=== PATIENT | male | born 1995 | race Caucasian/White ===

== ENCOUNTER 2016-08-27 11:09 | Emergency (ER) | payer BC ==
[~2016-08-27] VITALS: Ht 182.9 cm; Wt 75.0 kg
[2016-08-27 11:10] VITALS: BP 133/70; PULSE 78; RESP 14; TEMP 98.2; O2SAT 98
--- NOTE | 2016-08-27 11:39 | PD ---
HPI . left arm fracture Chief Complaint: Pain: Acute or Chronic Time Seen by Provider: 11:28 Travel History International Travel<30 days: No Contact w/Intl Traveler<30days: No Traveled to known affect area: No History of Present Illness HPI 20-year-old male [place] Student here with complaints of the left distal ulna fracture. Patient was doing martial arts and somehow got whacked in the left arm with fake sword. He denies any lacerations or wounds. He was advised to have an xray which was done yesterday and shows distal ulna fracture on left. He was told to see ortho today, but had difficulty getting an appointment. He has an appointment for Tuesday. He decided to come to the ED to get a splint or cast until he is seen. He has his left arm in a sling well supported. He denies any pain as long as it is not moved. He has no other complaints. PFSH Past Medical History Medical History: Denies Significant Hx Social History Tobacco Use: No Substance Use: No Allergies-Medications (Allergen,Severity, Reaction): Coded Allergies: Sulfa (Verified Allergy, Severe, 08/27/16) Review of Systems General / Constitutional: No: Fever Eyes: No: Visual changes HENT: No: Headaches Cardiovascular: No: Chest Pain or Discomfort Respiratory: No: Shortness of Breath Gastrointestinal: No: Abdominal Pain Genitourinary: No: Dysuria Musculoskeletal: Positive: Pain (left forarm) Skin: No Rash Neurologic: No: Weakness Psychiatric: No: Depression Endocrine: No: Polydipsia Hematologic/Lymphatic: No: Easy Bruising Physical Exam Narrative GENERAL: AAO x 3, no acute distress, Well-nourished, well-developed patient. SKIN: Warm and dry. No visible rashes or bruising. HEAD: Normocephalic and atraumatic. EYES: No scleral icterus. No injection or drainage. ENT: No nasal drainage noted. Mucous membranes pink. Airway patent. NECK: Supple, trachea midline. No JVD. CARDIOVASCULAR: Regular rate and rhythm without murmurs, gallops, or rubs. RESPIRATORY: Breath sounds equal bilaterally. No accessory muscle use. No rhonchi or rales. GASTROINTESTINAL: Abdomen soft, non-tender, nondistended. EXTREMITIES: No cyanosis. minimal edema to left distal forearm. tenderness to touch. pulses are intact. 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 all digits mobile. BACK: Nontender without obvious deformity. No CVA tenderness. PSYCH: AAO x 3, normal affect. Data Data Last Documented VS Vital Signs Date Time Temp Pulse Resp B/P Pulse Ox O2 Delivery O2 Flow Rate FiO2 08/27/16 11:10 98.2 78 14 133/70 98 Orders Splinting (08/27/16 ) Fiberglass Sugartong Sp Ad Arm (08/27/16 ) Sling Cradle Arm (08/27/16 ) MDM Medical Decision Making Medical Screen Exam Complete: Yes Emergency Medical Condition: Yes Medical Record Reviewed: Yes Differential Diagnosis left forearm fracture, left forearm pain, less likely dislocation of wrist Narrative Course 20-year-old male [place] Student here with complaints of the left distal ulna fracture. Patient was doing martial arts and somehow got whacked in the left arm with fake sword. He denies any lacerations or wounds. He was advised to have an xray which was done yesterday and shows distal ulna fracture on left. He was told to see ortho today, but had difficulty getting an appointment. He has an appointment for Tuesday. He decided to come to the ED to get a splint or cast until he is seen. He has his left arm in a sling well supported. He denies any pain as long as it is not moved. He has no other complaints. Patient seen and examined. Case discussed with Dr. Santamaria. X-ray was reviewed through the [facility] imaging software. Patient will get a sugar tong splint in the emergency department and will follow up with orthopedics on Tuesday as he already has an appointment. I offered him pain medications and he declined. Discussed RICE Patient verbalized understanding of instructions, questions were answered, and thanked me for their care. I advised them if their condition worsens, please return to the nearest emergency room for further care. Diagnosis Primary Impression: Fx distal ulna-closed Qualified Code: S52.602A - Closed fracture of distal end of left ulna, unspecified fracture morphology, initial encounter Patient Instructions: General Instructions Additional Instructions: Rest the affected area as much as possible. Ice this area for 15-20 minutes at a time. You can do this every hour or as much as tolerated. Keep in splint. Try not to get it wet. Elevate this area. Use ibuprofen as needed for pain and inflammation. Keep your orthopedic appointment on Tuesday. Return to the emergency department if your symptoms worsen. Return to the ED if there is swelling. Disposition: 01 DISCHARGE HOME Condition: Stable Jennifer Eckert Aug 27, 2016 11:39
== END 2016-08-27 12:16 | disposition home or self-care (01) ==
LOC: NEPK 11:09
DX: S52.602A Unspecified fracture of lower end of left ulna, initial encounter for closed fracture (principal)
CPT/HCPCS: 29125